=== PATIENT | male | born 1990 | race Caucasian/White ===

== ENCOUNTER 2018-11-11 16:07 | Emergency (ER) | payer BC ==
--- NOTE | 2018-11-11 16:15 | NUR ---
Called NO response
--- NOTE | 2018-11-11 16:25 | NUR ---
Called No response
--- NOTE | 2018-11-11 16:52 | NUR ---
Called No response. NOT in Waiting Room- [facility] [place]
== END 2018-11-11 16:53 | disposition home or self-care (01) ==
LOC: ER 16:20
DX: Z53.21 Procedure and treatment not carried out due to patient leaving prior to being seen by health care provider (principal)

== ENCOUNTER 2018-11-18 22:06 | Emergency (ER) | payer BC ==
[~2018-11-18] VITALS: Ht 177.8 cm; Wt 93.0 kg
[2018-11-18 22:53] VITALS: BP 151/73
== END 2018-11-18 23:23 | disposition home or self-care (01) ==
LOC: ER 22:11
DX: K60.2 Anal fissure, unspecified (principal); I10 Essential (primary) hypertension; Z76.0 Encounter for issue of repeat prescription